=== PATIENT | female | born 1985 ===

== ENCOUNTER → 2019-01-27 22:30 | Outpatient (REF) | payer OTHER, SELFPAY | LOC: LAB 22:30 | PROVIDERS: Visit Provider Naturopath | DX: K29.70 Gastritis, unspecified, without bleeding (principal) | CPT/HCPCS: 83013 ==

== ENCOUNTER → 2019-02-15 21:50 | Outpatient (ROUT) | payer OTHER, SELFPAY ==
[2019-02-15 23:16] LABS: Add Manual Diff / Slide Review NO; Basophils Absolute Auto 100 /uL (0-100); Basophils Percent Auto 0.9 % (0-2); Eosinophils Absolute Auto 100 /uL (0-450); Hematocrit 39.3 % (36-46); Hemoglobin 13.2 g/dL (12.0-16.0); Lymphocytes Absolute Auto 1200 /uL (1100-4500); Lymphocytes Percent Auto 14.1 % (25-40); Mean Corpuscular HGB Conc 33.5 % (30-36); Mean Corpuscular Hemoglobin 29.8 PG (26-34); Mean Corpuscular Volume 88.8 fL (80-100); Monocytes Absolute Auto 900 /uL (0-900); Monocytes Percent Auto 9.9 % (3-14); Neutrophils Absolute Auto 6500 /uL (1500-7000); Neutrophils Percent Auto 74.1 % (50-75); Platelet Count 318 X10^3/uL (150-400); Red Blood Cell Count 4.42 X10^6/uL (4.0-5.2); White Blood Cell Count 8.8 X10^3/uL (4.5-11.0)
== END ==
PROVIDERS: Visit Provider Naturopath
DX: M79.629 Pain in unspecified upper arm (principal); M79.89 Other specified soft tissue disorders
CPT/HCPCS: 36415; 85025